=== PATIENT | male | born 1990 | race Hispanic/Latino ===

== ENCOUNTER 2019-07-11 14:21 | Observation (INO) | payer SELFPAY ==
[2019-07-11 15:05] LABS: Absolute Lymphocytes (CBC) 0.9 K/uL (0.7-4.9); Basophils % 0.3 % (0-1.3); Lymphocytes % 9.4 % (15.3-44.8); MPV 7.9 fL (7.6-11.3); RBC Red Blood Cell Count 5.21 M/uL (4.33-5.43)
[2019-07-11] MEDS ORDERED: ACETAMINOPHEN 500 MG TAB ONE (15:07)
[2019-07-11] MEDS ORDERED: NA CHLORIDE 0.9% 1,000 ML ONE (15:07)
[2019-07-11 15:25] LABS: Albumin 4.1 g/dL (3.4-5.0); Bilirubin Direct 0.2 mg/dL (0-0.2); Bilirubin Total 0.9 mg/dL (0.2-1.0); Potassium 3.5 mmol/L (3.5-5.1); Protein, Total 8.1 g/dL (6.4-8.2)
[2019-07-11 16:12] LABS: Urine Blood TRACE (NEG); Urine Glucose NEGATIVE (NEG); Urine Protein NEGATIVE (NEG); Urine pH 7.5 (5.0-7.0)
--- NOTE | 2019-07-11 16:19 | RAD REPORT ---
EXAM DESCRIPTION: CT - Abdomen Pelvis W Contrast - 07/11/2019 3:51 pm CLINICAL HISTORY: right lower abdominal pain COMPARISON: No comparisons TECHNIQUE: Biphasic, helical CT imaging of the abdomen and pelvis was performed following 100 ml non -ionic IV contrast. No oral contrast administered. All CT scans are performed using dose optimization technique as appropriate and may include automated exposure control or mA/KV adjustment according to patient size. FINDINGS: No suspicious findings in the lung bases. The liver, spleen, and pancreas show no suspicious findings. Gallbladder and biliary tree are also wi thout suspicious finding. Symmetric renal function is seen with no hydronephrosis or suspicious renal mass. No pyelonephritis o r acute parenchymal process. No bladder abnormalities. No adrenal abnormalities. No gastric dilatation or wall thickening. No acute small bowel finding. No acute colon process. The appendix is abnormal dilated to 13 mm at the base. Periappendiceal stranding is present. Appendix is partially retrocecal. No appendicolith. No abscess or free air. No free air or pneumatosis. No free fluid collection. No other site of stranding. No hernia, mass or bulky lymphadenopathy. No suspicious bony findings. IMPRESSION: Acute appendicitis. Appendix is partially retrocecal. No abscess, free air or other surgically complicating factor.
[2019-07-11] MEDS ORDERED: PIPERACIL/TAZO 4.5 GM VIAL IV ONE (16:28)
--- NOTE | 2019-07-11 16:28 | EDPHYS ---
Physician Documentation [facility] Name: Reagan Canchola Age: 28 yrs Sex: Male : 1990 Arrival Date: 07/11/2019 Time: 14:23 Bed 25 Private MD: ED Physician Dao Hurtado HPI: 07/10 16:02 This 28 yrs old Male presents to ER via Ambulatory with complaints of jmm Abdominal Pain, Flank Pain. 16:02 The patient presents with abdominal pain. Onset: The symptoms/episode began/occurred jmm gradually, last night. The symptoms do not radiate. Associated signs and symptoms: Pertinent positives: fever, Pertinent negatives: diarrhea, vomiting. The symptoms are described as achy. Modifying factors: The symptoms are alleviated by remaining still. The patient has not experienced similar symptoms in the past. This is a 28 year old male with no chronic medical conditions that presents to the ED with complaints of right lower abdominal pain beginning last night. Denies vomiting or diarrhea. . Historical: - Allergies: 14:37 No Known Allergies; ss - Home Meds: 14:37 None [Active]; ss - PMHx: 14:37 None; ss - PSHx: 14:37 None; ss - Immunization history:: Adult Immunizations up to date. - Social history:: Smoking status: Patient denies any tobacco usage or history of. ROS: 16:02 Back: Negative for injury and pain. jmm 16:02 Constitutional: Positive for fever. 16:02 Abdomen/GI: Positive for abdominal pain. 16:02 All other systems are negative. Exam: 16:02 Constitutional: This is a well developed, well nourished patient who is awake, alert, jmm and in no acute distress. Head/Face: atraumatic. Eyes: EOMI, no conjunctival erythema appreciated ENT: Moist Mucus Membranes Neck: Trachea midline, Supple Chest/axilla: Normal chest wall appearance and motion. Cardiovascular: Regular rate and rhythm. No edema appreciated Respiratory: Normal respirations, no respiratory distress appreciated 16:02 Back: Normal ROM Skin: General appearance color normal MS/ Extremity: Moves all extremities, no obvious deformities appreciated, no edema noted to the lower extremities Neuro: Awake and alert, normal gait Psych: Behavior is normal, Mood is normal, Patient is cooperative and pleasant 16:02 Abdomen/GI: Inspection: abdomen appears normal, Bowel sounds: normal, Palpation: soft, moderate abdominal tenderness, in the right lower quadrant. Vital Signs: 14:35 BP 131 / 90; Pulse 104; Resp 16; Temp 102.3(O); Pulse Ox 99% on R/A; Weight 74.84 kg; ss Height 5 ft. 3 in. (160.02 cm); Pain 3/10; 15:43 Temp 102.2; ll1 17:08 BP 120 / 80; Pulse 98; Resp 17; Temp 100.0; Pulse Ox 98% ; Pain 2/10; ll1 14:35 Body Mass Index 29.23 (74.84 kg, 160.02 cm) ss MDM: 14:29 Patient medically screened. corin 16:24 Data reviewed: vital signs, nurses notes. Counseling: I had a detailed discussion with ericka the patient and/or guardian regarding: the historical points, exam findings, and any diagnostic results supporting the discharge/admit diagnosis, radiology results, the need for outpatient follow up, the need for further work-up and treatment in the hospital. ED course: I discussed the patient with Dr. Dillard whom accepted admission. 07/10 14:50 Order name: Basic Metabolic Panel; Complete Time: 15:27 ss 07/10 14:50 Order name: CBC with Diff; Complete Time: 15:17 ss 07/10 14:50 Order name: Creatinine for Radiology; Complete Time: 15:22 ss 07/10 14:50 Order name: Hepatic Function; Complete Time: 15:27 ss 07/10 14:50 Order name: Lipase; Complete Time: 15:27 07/10 15:45 Order name: Urine Dipstick--Ancillary (enter results); Complete Time: 16:17 eb 07/10 16:34 Order name: Basic Metabolic Panel EDMS 07/10 16:34 Order name: Basic Metabolic Panel EDMN 07/10 16:34 Order name: CBC with Automated Diff EDMS 07/10 16:34 Order name: CBC with Automated Diff EDMS 07/10 16:34 Order name: Lipase EDMS 07/10 16:34 Order name: Lipase EDMN 07/10 16:34 Order name: Liver (Hepatic) Function EDMN 07/10 16:34 Order name: Liver (Hepatic) Function EDMN 07/10 14:50 Order name: IV Saline Lock; Complete Time: 14:56 07/10 14:50 Order name: Labs collected and sent; Complete Time: 14:56 ss 07/10 15:07 Order name: CT Abd/Pelvis - IV Contrast Only; Complete Time: 16:23 [facility] 07/10 16:34 Order name: NPO EDMS Administered Medications: 15:08 Drug: Tylenol 1000 mg Route: PO; ll1 17:09 Follow up: Response: No adverse reaction; Temperature is decreased; RASS: Alert and ll1 Calm (0) 15:09 Drug: NS 0.9% 1000 ml Route: IV; Rate: 1 bolus; Site: right antecubital; ll1 17:09 Follow up: Response: No adverse reaction; RASS: Alert and Calm (0); IV Status: ll1 Completed infusion 15:09 CANCELLED (Duplicate Order): Tylenol 1000 mg PO once ll1 15:09 CANCELLED (Duplicate Order): NS 0.9% 1000 ml IV at 1 bolus Per protocol; 1000 mL bolus ll1 17:04 Drug: Zosyn 3.375 grams Route: IVPB; Infused Over: 60 mins; Site: right antecubital; ll1 17:12 Follow up: Response: No adverse reaction; IV Status: Infusion continued upon admission ll1 Disposition: 07/11 10:35 Co-signature as Attending Physician, Dao Hurtado MD I agree with the assessment and [facility] plan of care. Disposition: 07/11/19 16:27 Hospitalization ordered by Suman Dillard for Observation. Preliminary diagnosis is Acute appendicitis. - Bed requested for Telemetry/MedSurg (observation). - Status is Observation. ss - Condition is Stable. - Problem is new. - Symptoms are unchanged. Signatures: Dispatcher [employer] EDMS Dao Hurtado MD MD cha Mickail, Joel, PA PA jmm Smirch, Shelby, RN RN Octavio Fortune PA PA jr8 Lewis, Lynsay, RN RN ll1 Corrections: (The following items were deleted from the chart) 07/10 15:09 15:08 Tylenol 1000 mg PO once ordered. ll1 ll1 15:09 15:08 NS 0.9% 1000 ml IV at 1 bolus Per protocol; 1000 mL bolus ordered. ll1 ll1 17:11 16:27 Hospitalization Ordered by Suman Dillard MD for Observation. Preliminary ss diagnosis is Acute appendicitis. Bed requested for Telemetry/MedSurg (observation). Status is Observation. Condition is Stable. Problem is new. Symptoms are unchanged. ericka
--- NOTE | 2019-07-11 16:28 | ER ---
Nurse's Notes [facility] [place] Name: Reagan Canchola Age: 28 yrs Sex: Male : 1990 Arrival Date: 07/11/2019 Time: 14:23 Bed 25 Private MD: Diagnosis: Acute appendicitis Presentation: 07/10 14:35 Chief complaint: Patient states: RLQ pain and fever that began last night. Tylenol 1 g ss last taken 1.5 hours ago. Coronavirus screen: The patient has NOT traveled to a country currently being monitored by the [facility] within the last 14 days. Ebola Screen: Patient denies exposure to infectious person. Patient denies travel to an Ebola-affected area in the 21 days before illness onset. Initial Sepsis Screen: Does the patient meet any 2 criteria? No. Patient's initial sepsis screen is negative. Does the patient have a suspected source of infection? No. Patient's initial sepsis screen is negative. Risk Assessment: Do you want to hurt yourself or someone else? Patient reports no desire to harm self or others. 14:35 Method Of Arrival: Ambulatory ss 14:35 Acuity: TRUE 3 14:44 Onset of symptoms was July 10, 2019. ll1 Triage Assessment: 14:45 General: Appears uncomfortable, Behavior is calm, cooperative. Pain: Complains of pain ll1 in RLQ Quality of pain is described as aching, Pain began 1 day ago. Is continuous, Aggravated by palpation. Neuro: No deficits noted. Cardiovascular: No deficits noted. Respiratory: No deficits noted. GI: Abdomen is flat, Bowel sounds present X 4 quads. Abd is soft Abdomen is tender to palpation in right lower quadrant Reports lower abdominal pain. Historical: - Allergies: 14:37 No Known Allergies; ss - Home Meds: 14:37 None [Active]; ss - PMHx: 14:37 None; ss - PSHx: 14:37 None; ss - Immunization history:: Adult Immunizations up to date. - Social history:: Smoking status: Patient denies any tobacco usage or history of. Screenin:44 Abuse screen: Denies threats or abuse. Nutritional screening: No deficits noted. ll1 Tuberculosis screening: No symptoms or risk factors identified. Fall Risk None identified. IV access (20 points). Total An Fall Scale indicates No Risk (0-24 pts). Assessment: 15:10 General: Appears uncomfortable, Behavior is calm, cooperative. Pain: Complains of pain ll1 in right lower quadrant. Neuro: No deficits noted. Cardiovascular: No deficits noted. Respiratory: No deficits noted. GI: Abdomen is flat, Bowel sounds present X 4 quads. Abd is soft Abdomen is tender to palpation in right lower quadrant. : Reports pain with urination, this morning. Vital Signs: 14:35 BP 131 / 90; Pulse 104; Resp 16; Temp 102.3(O); Pulse Ox 99% on R/A; Weight 74.84 kg; ss Height 5 ft. 3 in. (160.02 cm); Pain 3/10; 15:43 Temp 102.2; ll1 17:08 BP 120 / 80; Pulse 98; Resp 17; Temp 100.0; Pulse Ox 98% ; Pain 2/10; ll1 14:35 Body Mass Index 29.23 (74.84 kg, 160.02 cm) ED Course: 14:23 Patient arrived in ED. rg4 14:27 Chase Keen PA is PHCP. jmm 14:27 Dao Hurtado MD is Attending Physician. jmm 14:30 Rodri Vasquez, JOY is Primary Nurse. ll1 14:36 Triage completed. ss 14:37 Arm band placed on right wrist. ss 14:44 Patient has correct armband on for positive identification. Bed in low position. Call ll1 light in reach. Side rails up X 1. 14:55 Initial lab(s) drawn, by dc, sent to lab. Inserted saline lock: 20 gauge in right lt1 antecubital area, using aseptic technique. 14:56 Door closed. Lights dimmed. Warm blanket given. lt1 15:48 CT completed. Patient tolerated procedure well. Patient moved back from CT. bq 15:52 CT Abd/Pelvis - IV Contrast Only In Process Unspecified. EDMS 16:26 Suman Dillard MD is Hospitalizing Provider. jmm 17:10 No provider procedures requiring assistance completed. Patient admitted, IV remains in ll1 place. 17:10 No provider procedures requiring assistance completed. Patient admitted, IV remains in ss place. Administered Medications: 15:08 Drug: Tylenol 1000 mg Route: PO; ll1 17:09 Follow up: Response: No adverse reaction; Temperature is decreased; RASS: Alert and ll1 Calm (0) 15:09 Drug: NS 0.9% 1000 ml Route: IV; Rate: 1 bolus; Site: right antecubital; ll1 17:09 Follow up: Response: No adverse reaction; RASS: Alert and Calm (0); IV Status: ll1 Completed infusion 15:09 CANCELLED (Duplicate Order): Tylenol 1000 mg PO once ll1 15:09 CANCELLED (Duplicate Order): NS 0.9% 1000 ml IV at 1 bolus Per protocol; 1000 mL bolus ll1 17:04 Drug: Zosyn 3.375 grams Route: IVPB; Infused Over: 60 mins; Site: right antecubital; ll1 17:12 Follow up: Response: No adverse reaction; IV Status: Infusion continued upon admission ll1 Outcome: 16:27 Decision to Hospitalize by Provider. ericka 17:10 Admitted to OR accompanied by nurse, family with patient, via wheelchair, with chart, ss Report called to Guillermina Smiley RN 17:10 Condition: good 17:10 Instructed on the need for admit. 17:10 Admitted to OR accompanied by nurse, family with patient, via wheelchair, room OR, ll1 Report called to Guillermina OR nurse. Verbal report with SBAR. 17:11 Patient left the ED. ss Signatures: Dispatcher [employer] EDMS Chase Keen PA PA jmm Quilty, Betty bq Smirch, Shelby, RN RN Sahra Jacobo 4 Alina Arguello [facility] Rodri Vasquez RN RN ll1
[2019-07-11] MEDS ORDERED: CEFTRIAXONE/SWI 1gm 0 GM/0 ML SYR ONE (16:30)
[2019-07-11] MEDS ORDERED: ACETAMINOPHEN 500 MG TAB PO PRN ×2 (16:31→22:35)
[2019-07-11] MEDS ORDERED: ONDANSETRON 4 MG/2 ML VIAL IV PRN (16:31)
[2019-07-11] MEDS ORDERED: MORPHINE 4 MG/ML SYR IV PRN ×2 (16:31→19:04)
[2019-07-11] MEDS ORDERED: NA CHLORIDE 0.9% 100 ML IV ONE (16:31)
[2019-07-11] MEDS ORDERED: ROCURONIUM 50 MG/5 ML VIAL IV ONE (17:15)
[2019-07-11] MEDS ORDERED: FENTANYL CITR 100 MCG/2 ML ONE ×2 (17:15→18:05)
[2019-07-11] MEDS ORDERED: propofoL 200 MG/20 ML VIAL IV ONE (17:15)
[2019-07-11] MEDS ORDERED: LIDOCAINE 2% MPF 5 ML VIAL ONE (17:15)
[2019-07-11] MEDS ORDERED: Ringers Lactate 1,000 ML IV ONE (17:17)
--- NOTE | 2019-07-11 17:19 | P.HP ---
Date of Service: 07/11/19 PC: This 28-year-old male presents emergency room with severe right lower quadrant abdominal pain for diagnosis and treatment. HPC: Patient noticed last night that he felt uncomfortable just below his abdomen after eating some food. Over the course of the night time this progress. Was not relieved by going to the restroom. Pain intensified today and is now localized more the right lower quadrant any finds it hard to walk. Also having some temperatures and fevers. PMH: Negative PSHx: Broken arm as a child SOC: No known allergies SYS REVIEW: No cough, wheeze, shortness of breath. No chest pain or palpitations. No urinary complaints. 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 The risks of this procedure have been discussed. The possibility of bleeding, infection, injury to surrounding structures were explained. He understands and wants us to proceed.
--- NOTE | 2019-07-11 17:44 | P.DS ---
Admission Date: 07/11/19 Discharge Date: 07/11/19 Vital Signs/Physical Exam: Temp Pulse Resp BP Pulse Ox 100.0 F 98 H 17 120/80 07/11/19 17:08 07/11/19 17:08 07/11/19 17:08 07/11/19 17:08 Laboratory Data at Discharge: WBC 9.6 K/uL (4.3-10.9) 07/11/19 14:49 Hgb 16.1 g/dL (13.6-17.9) 07/11/19 14:49 Hct 47.0 % (39.6-49.0) 07/11/19 14:49 Plt Count 197 K/uL (152-406) 07/11/19 14:49 Sodium 136 mmol/L (136-145) 07/11/19 14:49 Potassium 3.5 mmol/L (3.5-5.1) 07/11/19 14:49 BUN 13 mg/dL (7-18) 07/11/19 14:49 Creatinine 1.07 mg/dL (0.55-1.3) 07/11/19 14:49 Glucose 101 mg/dL (74-106) 07/11/19 14:49 Total Bilirubin 0.9 mg/dL (0.2-1.0) 07/11/19 14:49 AST 22 U/L (15-37) 07/11/19 14:49 ALT 32 U/L (12-78) 07/11/19 14:49 Alkaline Phosphatase 66 U/L (45-117) 07/11/19 14:49 Lipase 98 U/L (73-393) 07/11/19 14:49
[2019-07-11] MEDS ORDERED: ONDANSETRON 4 MG/2 ML VIAL ONE (18:05)
[2019-07-11] MEDS ORDERED: KETOROLAC 30 MG/ML INJ ONE (18:05)
[2019-07-11] MEDS ORDERED: dexAMETHasone 10 MG/ML VIAL ONE (18:05)
[2019-07-11] MEDS ORDERED: GLYCOPYRROLATE 0.2 MG/ML SYR ONE (18:15)
[2019-07-11] MEDS ORDERED: NEOSTIGMINE 1 MG/ML -5 ML ONE (18:15)
--- NOTE | 2019-07-11 19:01 | P.OP ---
Preoperative diagnosis: Acute abdomen with appendicitis Postoperative diagnosis: The same Primary procedure: Laparoscopic appendectomy Anesthesia: General Estimated blood loss: And 20 cc Specimen: 1 appendix (in 2 parts) Operative Technique: The patient brought the operating room placed supine on the table. After the induction of adequate general endotracheal anesthesia, the area of the abdomen was prepped with a DuraPrep solution, and he was draped in usual aseptic manner. A subumbilical incision was made. This brought down through the skin and subcutaneous tissue. The Visiport was now used to enter the peritoneal cavity and created pneumoperitoneum to approximately 12 mm of mercury. Under direct vision a 5 mm trocar was placed in the right upper quadrant and another in the lower midline we were now able to visualize the right lower quadrant. With the patient placed in Trendelenburg and rolled to the left we could visualize the right lower quadrant. We could see an intense inflammatory process just at the right lateral sidewall. The appendix was identified. A came down ink rolled out laterally and superiorly into the retroperitoneum. The lead junction of the appendix with the cecum was identified. An opening was made at the base of the appendix. The linear Stapler was now introduced and placed across the base the appendix and fired. Adequate hemostasis having been insure the the appendix was now taken down in a retrograde manner. The mesentery of the appendix was controlled using electro cautery. The cleared dated we were able to fire of the vascular Stapler across this area. The remainder the appendix was now detached. The appear . It did central portion was action necrotic. The distal specimen was also completely dissected down to the tip of the appendix. These 2 pieces were now placed into an Endo-Catch and brought out through the umbilical trocar site. The right lower quadrant was carefully inspected. In the area was then be markedly inflamed. It was irrigated with a saline this solution until the effluent was clear. There was some small amount of bleeding however the ER has been contained. At this point the patient was returned to the neutral position on the OR table. The umbilical trocar site was approximated with an absorbable suture of placed using the Endo Close. The fashion was now approximated as we collapsed the pneumoperitoneum and removed the trocars. The drain having been tied allowed us now to close. No drains were placed. Complications: None Transferred to: Recovery Room Condition: Good
[2019-07-11] MEDS ORDERED: HYDROCODONE/APAP 7.5/325 MG TAB PO PRN ×2 (19:04→22:36)
[2019-07-11] MEDS: HYDROMORPHONE HCL 1 MG/ML INJ ONE ×2 (19:10→19:15)
[2019-07-11] MEDS ORDERED: HYDROMORPHONE HCL 1 MG/ML INJ ONE (19:31)
[2019-07-11 19:35] VITALS: O2SAT 98
[2019-07-11] MEDS: D5 0.45 NS 1,000 ML IV SCH (20:03)
[2019-07-11 20:19] VITALS: BMI 28.3
[2019-07-12] MEDS ORDERED: PIPERACIL/TAZO 3.375 GM VIAL IV ONE (00:42)
[2019-07-12] MEDS ORDERED: NA CHLORIDE 0.9% 100 ML ONE (00:55)
[2019-07-12] MEDS: PIPER/TAZO/NS 3.375gm 3.375 GM/100 ML BAG IVPB SCH ×2 (01:00→09:52)
[2019-07-12] MEDS: D5 0.45 NS 1,000 ML IV SCH ×2 (04:10→09:53)
[2019-07-12] MEDS ORDERED: INFLUENZA VACCINE (for 3y+) 0.5 ML DOSE IMVAC ONE (08:00)
[2019-07-12 13:14] VITALS: BP 115/64; TEMP 99.6
== END 2019-07-12 13:40 | disposition home or self-care (01) ==
LOC: ER 14:21 → ERHOLD 16:30 → 2ND 18:52
PROVIDERS: ADMIT Surgery; ATTEND Surgery
PROC: 0DTJ4ZZ Resection of Appendix, Percutaneous Endoscopic Approach (ICD-10-PCS; principal; 2019-07-11 17:00)
DX: K35.80 Unspecified acute appendicitis (principal)
CPT/HCPCS: 36415; 74177; 80048; 80076; 81003; 83690; 85025; 88304; 96361; 96374; 99285; G0378; J0696; J1100; J1170; J2405; J2543; J2704; J2710; J3010; J7030; J7120; J7799; Q9967